=== PATIENT | female | born 2005 | race African-American/Black ===

== ENCOUNTER 2024-08-25 14:46 | Emergency (ER) | payer OTHER, SELFPAY ==
[2024-08-25 15:04] VITALS: BP 100/61; PULSE 70; RESP 18; TEMP 536.6; TEMP 997.8; O2SAT 98; BMI 19.4
--- NOTE | 2024-08-25 15:06 | ED.GENADULT ---
HPI - General Adult General Chief complaint: Upper Respiratory Symptoms Stated complaint: SOB, congestion Time Seen by Provider: 08/25/24 19:12 Source: patient and RN notes reviewed Mode of arrival: ambulatory Limitations: no limitations History of Present Illness ED Provider: Noa Lawrence PA-C HPI narrative: This is a 18-year-old female who presents emergency department with complaints of body aches, congestion, sore throat and cough x 2 days. Patient reports that the worst symptom that she is having his her body aches. Denies any chest pain or shortness of breath. Denies history of asthma. She has been taking Tylenol for her symptoms which has provided her with some relief. No other complaints or concerns at this time. MD complaint: Cough, congestion Onset (ago): day(s) Relieving factors: none Exacerbating factors: none Associated symptoms: denies other symptoms Treatments prior to arrival: none Related Data Previous Rx's ?Medication ?Instructions ?Recorded oseltamivir 75 mg capsule (Tamiflu) 75 mg PO BID 5 days #10 caps 08/25/24 Allergies Allergy/AdvReac Type Severity Reaction Status Date / Time Penicillins [PCN] Allergy Itching Verified 08/25/24 15:07 Review of Systems Review of Systems: Yes all other systems are reviewed and are negative Constitutional: Constitutional: Reports as per [facility] Social History Social History Advance Directives: No Advance Directives Information Provided: No Do you have a plan to hurt others: No Plan Physical Exam ED Vital Signs: Vital Signs - 24 hr 08/25/24 15:04 08/25/24 19:14 08/25/24 19:31 Temperature 997.8 F H 98.3 F 98.3 F Pulse Rate 70 70 Respiratory Rate 18 18 Blood Pressure 100/61 100/61 Pulse Oximetry 98 98 Oxygen Delivery Method Room Air Room Air BMI result Body Mass Index 19.4 Const General: cooperative, comfortable and no acute distress Orientation/consciousness: patient oriented x3 Limitations: no limitations HENMT Head: Yes normal to inspection, Yes normocephalic and Yes atraumatic Ears: hearing grossly normal bilaterally General nose exam: Normal external nose present Face and sinus: Yes normal facial exam Mouth: Normal oral and palatal mucosa present, oropharynx normal and moist mucous membranes Throat: Yes posterior oropharynx normal Eyes General: appearance normal, both eyes and all related structures Eyelids: Yes eyelids normal Conjunctivae: conjunctivae normal Sclerae: sclerae normal Pupils: Equal, round and reactive pupils present EOM: EOMs intact bilaterally Neck Neck: Yes normal visual inspection, Yes full ROM and Yes no lymphadenopathy Lymphatic: no lymphadenopathy noted Chest Chest palpation & inspection: normal inspection of the chest Resp Effort & Inspection: normal respiratory effort and able to speak in complete sentences Auscultation: clear to auscultation bilaterally, no crackles, no rales, no rhonchi and no wheezes Cardio Rate: regular rate Rhythm: regular rhythm Heart sounds: S1 normal heart sound present and S2 normal heart sound present GI Inspection: Yes normal to inspection Skin General skin exam: no rashes or lesions noted Trauma: no lacerations or abrasions Wounds: no wounds Neuro General: patient oriented x3 and moves all extremities Cranial nerves: Yes Equal, round and reactive pupils present Extrem General: Yes normal to inspection Right upper extremity: normal to inspection Left upper extremity: normal to inspection Right lower extremity: normal to inspection Left lower extremity: normal to inspection Medical Decision Making Medical Decision Making [facility] Narrative: This is a 18-year-old female who presents emergency department with concerns for body aches, shortness of breath, congestion, sore throat for the last 2 days. Denies chance of . On arrival, vital signs within normal limits. She is speaking full sentences under no acute distress. Lungs are clear to auscultation bilaterally. Patient tested positive for influenza. Given that her symptoms started less than 2 days ago, will start on Tamiflu. Given strict return precautions. She has no chest pain or shortness of breath. She understands and agrees with plan. Patient stable for discharge. Differential Diagnosis Differential Diagnoses: The differential diagnosis associated with the presentation includes Flu, COVID, pneumonia, strep Lab Data [facility] Lab Attestation statement: I reviewed the patient's lab results. Positive influenza Labs: Lab Results 08/25/24 Range/Units 15:27 Influenza Type A (PCR) POSITIVE A (Negative) Influenza Type B (PCR) NEGATIVE (Negative) RSV RNA Qual (PCR) NEGATIVE (Negative) SARS-CoV-2 RNA (RT-PCR) NEGATIVE (Negative) S. pyogenes GrpA YVONNE Negative (Negative) Discharge Plan Discharge Clinical Impression: Influenza A Patient Disposition: Home, Self-Care Instructions: Influenza (ED) Additional Instructions: You were seen in the emergency department and tested positive for flu A Please drink plenty of fluids get plenty of rest. Alternate between ibuprofen and or Tylenol as needed for pain and symptoms. Tamiflu is an antiviral medication which can help lessen the severity induration of your symptoms. If any new or worsening symptoms occur including but not limited to severe chest pain, shortness of breath, please seek emergent care. Prescriptions: New oseltamivir [Tamiflu] 75 mg capsule 75 mg PO BID 5 Days Qty: 10 0RF Stand Alone Forms: Work/School Release Interventions: ED Discharge Assessment Last Done: 08/25/24 19:31 Discharge Date/Time: 08/25/24 19:32 Print Language: Kyrgyz
[2024-08-25 15:40] LABS: IDNOW Serial# 6674DD1D; Strep A Nucleic Acid Negative (Negative)
[2024-08-25 16:09] LABS: Influenza A PCR POSITIVE (Negative); Influenza B PCR NEGATIVE (Negative); Resp Syncy Virus RNA Qual PCR NEGATIVE (Negative); SARS COV2 PCR INHOUSE NEGATIVE (Negative)
[2024-08-25 19:14] VITALS: TEMP 36.8
[2024-08-25 19:31] VITALS: BP 100/61; PULSE 70; RESP 18; TEMP 36.8; O2SAT 98
== END 2024-08-25 19:32 | disposition home or self-care (01) ==
LOC: HO.ED 19:30
PROVIDERS: Physician Assistant Medical; Emergency Provider Emergency Medicine Emergency Medical Services
DX: J10.1 Influenza due to other identified influenza virus with other respiratory manifestations (principal); R05.9 Cough, unspecified; R52 Pain, unspecified
CPT/HCPCS: 0241U; 87651; 99282; 99283

== ENCOUNTER 2025-01-01 00:34 | Emergency (ER) | payer SELFPAY ==
--- NOTE | ~2025-01-01 | US_ITS ---
CLINICAL HISTORY: LLQ pain, r o ovarian torsion US pelvis transabdominal and transvaginal with Doppler Comparison: CT/SR - CT ABDOMEN PELVIS W IV CON - 01/01/25 01:28 EDT Findings: Transabdominal scanning performed for overall anatomy. Transvaginal scanning performed for additional detail. Anteverted uterus is 7.6 cm length. Normal myometrium. No endometrial lesion, 11 mm thickness. Mobile blood products are noted within the endometrium. Right ovary 3.4 x 1.7 x 2.3 cm. Left ovary 3.2 x 1.3 x 2 cm. Normal color Doppler with arterial/venous spectral tracing of both ovaries. Debris is noted within the urinary bladder on transabdominal imaging. Mild free fluid. IMPRESSION: 1. Unremarkable pelvic ultrasound with no evidence of ovarian torsion. 2. Small volume free fluid in the cul-de-sac 3. Mobile blood products noted within the endometrial stripe. 4. Mobile debris in the urinary bladder. Please correlate clinically. This document has been electronically signed by: Brien Leary MD, PHD on 01/01/2025 04:51:05
--- NOTE | ~2025-01-01 | CT_ITS ---
CLINICAL HISTORY: LLQ pain CT abdomen and pelvis with contrast Comparison: None Findings: Motion artifact degrades the images limiting interpretation. The lung bases are clear. Unremarkable gallbladder and solid organs. No urolithiasis. No bowel obstruction, pneumoperitoneum, or pneumatosis. Pelvic contents unremarkable. Normal appendix. Fat stranding or inflammatory changes efface soft tissue planes in the pelvis. There is moderate free fluid in the cul-de-sac. The bones are intact. IMPRESSION: Fat stranding or inflammatory changes effacing soft tissue planes in the pelvis with moderate free fluid. Pelvic ultrasound may be helpful for further characterization if clinically indicated. This document has been electronically signed by: Brien Leary MD, PHD on 01/01/2025 02:38:44
[2025-01-01 00:40] VITALS: BP 112/71; PULSE 112; RESP 16; TEMP 36.9; O2SAT 97; BMI 20.1
[2025-01-01 00:57] LABS: Basophils Absolute Auto 0.1 X10*3/uL (0.0-0.2); Basophils Percent Auto 0.3 % (0-2); Eosinophils Absolute Auto 0.1 X10*3/uL (0.0-0.4); Eosinophils Percent Auto 0.4 % (0-4); Hematocrit 34.6 % (37.0-47.0); Hemoglobin 11.7 g/dl (12.0-16.0); Imm Gran Abs Auto 0.08 X10*3/uL (0.00-0.03); Imm Gran Pct Auto 0.4 % (0.0-0.4); Lymphocytes Absolute Auto 2.4 X10*3/uL (1.2-4.9); Lymphocytes Percent Auto 12.8 % (20-40); MANUAL DIFF FLAG SCAN; Mean Corpuscular HGB Conc 33.8 g/dl (31.0-35.0); Mean Corpuscular Hemoglobin 31.7 pg (27.0-33.0); Mean Corpuscular Volume 93.8 fL (80.0-98.0); Mean Platelet Volume 11.2 fL (9.4-12.3); Monocytes Absolute Auto 1.6 X10*3/uL (0.1-1.2); Monocytes Percent Auto 8.3 % (2-11); Neutrophils Absolute Auto 14.7 x10*3/uL (2.0-8.3); Neutrophils Percent Auto 77.8 % (45-73); Platelet Count 266 X10*3/uL (160-400); Red Blood Count 3.69 X10*6/uL (4.20-5.50); Red Cell Distribution Width 11.9 % (11.0-16.0); SCAN SMEAR FLAG 1; White Blood Count 18.9 X10*3/uL (4.8-10.8)
[2025-01-01 00:59] LABS: Appearance Urine Clear; Color Urine Yellow; Glucose Urine UA Negative (Negative); Leukocyte Esterase Urine Negative (Negative); Nitrite Urine Negative (Negative); Urine Blood Negative (Negative); Urine Ketones 15 mg/dL (Negative); Urine Protein Negative (Neg-Trace)
[2025-01-01 01:00] LABS: UPreg QC Valid YES; Urine Pregnancy NEGATIVE (NEGATIVE)
[2025-01-01 01:14] LABS: SLIDE REVIEW VERIFIED
--- NOTE | 2025-01-01 01:18 | ED.ABDPAIN ---
HPI - Abdominal Pain General Chief Complaint: Abdominal Pain Stated Complaint: Abdominal Pain Time Seen by Provider: 01/01/25 01:09 Source: patient Mode of arrival: ambulatory Limitations: no limitations History of Present Illness ED Provider: Dr. Kandy Maria HPI narrative: Patient comes to the emergency room complaining of left lower quadrant pain that started approximately 18 hours ago. Patient states that she has been nauseous but has not vomited. Patient denies any fever chills, denies hematuria dysuria. Patient had multiple episodes of diarrhea today. Patient states that a proximally 2 years ago, when she was living in [place], she needed to be hospitalized for colitis. Patient states that it feels very similar today. Patient denies flank pain, denies history of ovarian cysts, denies hematuria or dysuria. Related Data Previous Rx's ?Medication ?Instructions ?Recorded oseltamivir 75 mg capsule (Tamiflu) 75 mg PO BID 5 days #10 caps 08/25/24 acetaminophen 500 mg tablet 500 mg PO Q6H PRN pain #14 tabs 01/01/25 ketorolac 10 mg tablet 10 mg PO TID PRN pain #10 tabs 01/01/25 Allergies Allergy/AdvReac Type Severity Reaction Status Date / Time Penicillins [PCN] Allergy Itching Verified 01/01/25 00:42 Review of Systems Review of Systems Constitutional : No Weight loss, No Fever, No Chills, No Night Sweats, No Fatigue, No Malaise ENT/Mouth : No Hearing loss, No Ear Pain, No Nasal Congestion, No Sinus Pain, No Hoarseness, No sore throat, No Rhinorrhea, No Swallowing Difficulty Eyes: No Eye Pain, No Swelling, No Redness, No Foreign Body, No Discharge, No Vision Changes Cardiovascular : No Chest Pain, No SOB, No Dyspnea on Exertion, No Orthopnea, No Edema, No Palpitations Respiratory : No Cough, No Sputum, No Wheezing, No Smoke Exposure, No Dyspnea Gastrointestinal : Complaining of Nausea, No Vomiting, complaining of diarrhea, complaining of sharp left lower quadrant pain Genitourinary : no irregular bleeding, No Dysuria, No Urinary Frequency, No Hematuria, No Urinary Incontinence, No Urgency, No Flank Pain, No Urinary Flow Changes, No Hesitancy Musculoskeletal : No joint pain, No Myalgias, No Joint Swelling Skin : No Skin Lesions, No rash Neuro : No Weakness, No Numbness, No Paresthesias, No Loss of Consciousness, No Dizziness, No Headache Psych : No Anxiety/Panic, No Depression, No SI/HI/AH/VH, No Social Issues, Heme/Lymph: No Bruising, No Bleeding,No Lymphadenopathy Endocrine : No Polyuria, No Polydipsia, No Temperature Intolerance [facility] Social History Social History Smoked in Last 30 Days: No Use of substances other than those prescribed or required for medical reasons: No Advance Directives: No Advance Directives Information Provided: Yes Do you have a plan to hurt others: No Plan Patient : No Physical Exam ED Vital Signs: Vital Signs - 24 hr 01/01/25 00:40 01/01/25 03:59 Temperature 98.5 F 97.2 F Pulse Rate 112 H 63 Respiratory Rate 16 14 Blood Pressure 112/71 107/62 Pulse Oximetry 97 99 Oxygen Delivery Method Room Air Room Air BMI result Body Mass Index 20.1 Const Other: Appearance: Alert. Oriented X3. No acute distress. Well-appearing Eyes: Pupils equal, round and reactive to light. ENT: Pharynx normal. Neck: Normal inspection. Neck supple. No lymph nodes noted. No crepitus CVS: Normal heart rate and rhythm. Pulses normal. Normal S1 and S2 Respiratory: No respiratory distress. Breath sounds normal. No Wheezing. No rales Abdomen: Soft moderate tenderness to palpation in left lower quadrant, no rebound or guarding, no CVA tenderness Skin: Skin warm and dry. Normal skin color. Normal skin turgor. Extremities: No lower extremity edema. No Lacerations. No Rash Neuro: Oriented X 3. No motor deficit. No sensory deficit. Moving all extremities. No slurred speech. CN 2 through 12 grossly intact Psych: calm, cooperative, normal affect Course Course Course Narrative: Patient receiving IV fluids, ketorolac and Zofran. CT scan of the abdomen pending Medical Decision Making Medical Decision Making [facility] Narrative: My interpretation of labs: Patient's white blood cell count 18.9, hemoglobin 11.7, hematocrit 34.6. Patient's chemistry within normal limits. Urinalysis negative for UTI CT scan of the abdomen shows moderate free fluid in the pelvis, ultrasound recommended. After patient received IV pain medications, states that she feels much better. Ultrasound is negative for ovarian torsion Patient denies vaginal discharge, declined pelvic exam, denied any worries for STDs. Overall patient states that she feels well, would like to be discharged home. Differential Diagnosis Differential Diagnoses: The differential diagnosis associated with the presentation includes (As above) Admission/Observation Consideration of admission/observation: Escalation of care including admission/observation considered (Given patient's labs and presentation, observation was considered) Lab Data [facility] Lab Attestation statement: I reviewed the patient's lab results. 01/01/25 00:53 01/01/25 00:53 Labs: Lab Results 01/01/25 Range/Units 00:53 WBC 18.9 H (4.8-10.8) X10*3/uL RBC 3.69 L (4.20-5.50) X10*6/uL Hgb 11.7 L (12.0-16.0) g/dl Hct 34.6 L (37.0-47.0) % MCV 93.8 (80.0-98.0) fL MCH 31.7 (27.0-33.0) pg MCHC 33.8 (31.0-35.0) g/dl RDW 11.9 (11.0-16.0) % Plt Count 266 (160-400) X10*3/uL MPV 11.2 (9.4-12.3) fL Immature Gran % (Auto) 0.4 (0.0-0.4) % Neut % (Auto) 77.8 H (45-73) % Lymph % (Auto) 12.8 L (20-40) % Orange % (Auto) 8.3 (2-11) % Eos % (Auto) 0.4 (0-4) % Baso % (Auto) 0.3 (0-2) % Lymph # (Auto) 2.4 (1.2-4.9) X10*3/uL Orange # (Auto) 1.6 H (0.1-1.2) X10*3/uL Eos # (Auto) 0.1 (0.0-0.4) X10*3/uL Baso # (Auto) 0.1 (0.0-0.2) X10*3/uL Abs Immat Gran (auto) 0.08 H (0.00-0.03) X10*3/uL Absolute Neuts (auto) 14.7 H (2.0-8.3) x10*3/uL Absolute Nucleated RBC 0.000 (0.0-0.012) X10*3/uL Nucleated RBC % (auto) 0.0 (0.0-0.2) /100WBC Smear Tech's Comments VERIFIED Sodium 139 (135-145) mmol/L Potassium 3.9 (3.3-5.1) mmol/L Chloride 107 (96-108) mmol/L Carbon Dioxide 24 (22-29) mmol/L Anion Gap 12 (12-20) BUN 7 L (9-16) mg/dL Creatinine 0.59 (0.5-1.4) mg/dL Estim Creat Clear Calc 118.7 Estimated GFR > 60 Random Glucose 114 (60-115) mg/dL Calcium 9.5 (8.4-10.2) mg/dL Total Bilirubin 0.7 (0.0-1.0) mg/dL Direct Bilirubin 0.2 (0.0-0.5) mg/dL AST 32 H (5-31) U/L ALT 25 (0-31) U/L Alkaline Phosphatase 85 (39-117) U/L Total Protein 7.5 (6.5-8.0) g/dL Albumin 4.4 (3.5-5.0) g/dL Lipase 11 (8-78) U/L Urine Color Yellow Urine Appearance Clear Urine pH 8.0 (5.0-9.0) Ur Specific [place] 1.020 (1.005-1.025) Urine Protein Negative (Neg-Trace) mg/dL Urine Glucose (UA) Negative (Negative) mg/dL Urine Ketones 15 (Negative) mg/dL Urine Blood Negative (Negative) Urine Nitrite Negative (Negative) Ur Leukocyte Esterase Negative (Negative) Urine Test NEGATIVE (NEGATIVE) Independent Interpretation I performed an independent interpretation of an: Ultrasound and CT Scan Radiology Impression Discussion of test interpretation with radiology: I have reviewed the radiologist's reading. Radiologist Impression: Normal myometrium. No endometrial lesion, 11 mm thickness. Mobile blood products are noted within the endometrium. Right ovary 3.4 x 1.7 x 2.3 cm. Left ovary 3.2 x 1.3 x 2 cm. Normal color Doppler with arterial/venous spectral tracing of both ovaries. Debris is noted within the urinary bladder on transabdominal imaging. Mild free fluid. IMPRESSION: 1. Unremarkable pelvic ultrasound with no evidence of ovarian torsion. 2. Small volume free fluid in the cul-de-sac 3. Mobile blood products noted within the endometrial stripe. 4. Mobile debris in the urinary bladder. Please correlate clinically. Motion artifact degrades the images limiting interpretation. The lung bases are clear. Unremarkable gallbladder and solid organs. No urolithiasis. No bowel obstruction, pneumoperitoneum, or pneumatosis. Pelvic contents unremarkable. Normal appendix. Fat stranding or inflammatory changes efface soft tissue planes in the pelvis. There is moderate free fluid in the cul-de-sac. The bones are intact. IMPRESSION: Fat stranding or inflammatory changes effacing soft tissue planes in the pelvis with moderate free fluid. Pelvic ultrasound may be helpful for further characterization if clinically indicated. Medications Administered Discontinued Medications Generic Name Dose Route Start Last Admin Trade Name Freq PRN Reason Stop Dose Admin Lactated Ringer's 1,000 mls @ 999 mls/hr 01/01/25 01:30 01/01/25 02:48 Lr IV 01/01/25 02:30 999 mls/hr .Q1H1M ALONDRA Administration Iohexol 85 ml 01/01/25 01:32 01/01/25 01:32 Iohexol 350 Mg/Ml 100 Ml Infus..Btl IV 01/01/25 01:33 85 ml ONCE ONE Administration Ketorolac Tromethamine 30 mg 01/01/25 01:17 01/01/25 02:44 Ketorolac Tromethamine 30 Mg/Ml Vial IVPUSH 01/01/25 01:18 30 mg ONCE ONE Administration Ondansetron HCl 4 mg 01/01/25 01:17 01/01/25 02:44 Ondansetron Hcl 4 Mg/2 Ml Vial IVPUSH 01/01/25 01:18 4 mg ONCE ONE Administration Critical Care Time Critical Care Time Critical Care Time: Yes Total Critical Care Time: 60 Attestation: I have personally provided critical care time. Time includes review of lab data, radiology results, discussion with consultants, and monitoring for potential decompensation. Intervention performed as documented. Discharge Plan Discharge Clinical Impression: Abdominal pain Patient Disposition: Home, Self-Care Instructions: Abdominal Pain (ED) Additional Instructions: Please follow-up with your primary care physician tomorrow. If you have any worsening or new symptoms, please return to the emergency room or call 911 Prescriptions: New ketorolac 10 mg tablet 10 mg PO TID PRN (Reason: pain) Qty: 10 0RF acetaminophen 500 mg tablet 500 mg PO Q6H PRN (Reason: pain) Qty: 14 0RF No Action oseltamivir [Tamiflu] 75 mg capsule 75 mg PO BID 5 Days Qty: 10 0RF Stand Alone Forms: Work/School Release Print Language: Slovak
[2025-01-01 01:20] LABS: Alanine Aminotransferase 25 U/L (0-31); Albumin Level 4.4 g/dL (3.5-5.0); Anion Gap 12 (12-20); Aspartate Amino Transferase 32 U/L (5-31); Bilirubin Direct 0.2 mg/dL (0.0-0.5); Bilirubin Total 0.7 mg/dL (0.0-1.0); Blood Urea Nitrogen 7 mg/dL (9-16); Calcium 9.5 mg/dL (8.4-10.2); Carbon Dioxide 24 mmol/L (22-29); Chloride 107 mmol/L (96-108); Creatinine Clr Calc Pharmacy 118.7; Estimated Glomerular Filt Rate > 60; Glucose Random 114 mg/dL (60-115); Lipase 11 U/L (8-78); Potassium 3.9 mmol/L (3.3-5.1); Sodium 139 mmol/L (135-145); Total Protein 7.5 g/dL (6.5-8.0)
[2025-01-01] MEDS: iohexoL 350 MG/ML 100 ML INFUS..BTL 85 ML IV (01:32)
[2025-01-01 02:05] LABS: Alkaline Phosphatase 85 U/L (39-117)
[2025-01-01] MEDS: Ketorolac Tromethamine 30 MG/ML VIAL IVPUSH (02:44)
[2025-01-01] MEDS: ondansetron HCL 4 MG/2 ML VIAL IVPUSH (02:44)
[2025-01-01] MEDS: Lactated Ringers 1,000 ML 999 ML IV (02:48)
[2025-01-01 03:59] VITALS: BP 107/62; PULSE 63; RESP 14; TEMP 36.2; O2SAT 99
[2025-01-01 05:25] VITALS: BP 107/62; PULSE 63; RESP 14; TEMP 36.2; O2SAT 99
== END 2025-01-01 05:26 | disposition home or self-care (01) ==
PROVIDERS: Emergency Provider Emergency Medicine
DX: R10.32 Left lower quadrant pain (principal); R11.0 Nausea; R10.2 Pelvic and perineal pain; Z79.899 Other long term (current) drug therapy
CPT/HCPCS: 36415; 74177; 76830; 76856; 80053; 81003; 81025; 82248; 83690; 85025; 93975; 96361; 96374; 96375; 99284; 99285; J1885; J2405; J7120; Q9967

== ENCOUNTER → 2025-01-01 01:17 | Outpatient (BNV) | payer SELFPAY | PROVIDERS: Emergency Provider Emergency Medicine; Visit Provider General Practice | DX: R10.32 Left lower quadrant pain (principal) | CPT/HCPCS: 74177; 76830; 76856; 93975 ==